=== PATIENT | male | born 1955 | race Caucasian/White ===

== ENCOUNTER 2022-03-11 10:14 | Outpatient (CLI) | payer MEDICARE, SELFPAY | END 2022-03-11 10:15 | disposition home or self-care (01) | LOC: AMB 03-19 21:18 | PROVIDERS: PCP Family Medicine; Visit Provider Emergency Medicine Emergency Medical Services | DX: I49.9 Cardiac arrhythmia, unspecified (principal) | CPT/HCPCS: A0998 ==

== ENCOUNTER 2022-03-11 10:24 | Outpatient (CLI) | payer MEDICARE, SELFPAY | END 2022-03-11 10:25 | disposition home or self-care (01) | LOC: AMB 03-19 21:13 | PROVIDERS: PCP Family Medicine; Visit Provider Emergency Medicine Emergency Medical Services | DX: I49.9 Cardiac arrhythmia, unspecified (principal) | CPT/HCPCS: A0425; A0427 ==